=== PATIENT | female | born 1985 | race African-American/Black ===

== ENCOUNTER 2019-08-17 07:12 | Emergency (ER) | payer OTHER ==
--- NOTE | 2019-08-17 07:18 | PDOC ---
History of Present Illness - General Stated Complaint: ABDOMINAL PAIN Time Seen by Provider: 08/17/19 07:18 History Source: Patient Exam Limitations: No Limitations - History of Present Illness Initial Comments: 34 year old female with PMH epilepsy, uterine fibroids BIBA to ED for acute LLQ/ L Flank pain since 0400 today. Pt reported she awoke with sharp pain originating in her LLQ, radiating to her L flank, constant, no alleviating or aggravating factors. She admitted to 2-3 episodes of vomiting (yellow emesis). She denied diarrhea, dysuria, hematuria, fever. Pt reported she is currently on her menstrual period. PSH: x2 Past History - Past Medical History Allergies/Adverse Reactions: Allergies Allergy/AdvReac Type Severity Reaction Status Date / Time No Known Allergies Allergy Verified 06/04/14 16:02 Home Medications: Ambulatory Orders Clonazepam [Klonopin] 1 mg PO BID 08/17/19 Lacosamide [Vimpat] 200 mg PO DAILY 08/17/19 Tamsulosin HCl [Flomax] 0.4 mg PO DAILY #7 cap.er.24h 08/17/19 Psychiatric Problems: Yes (depression/anxiety) - Psycho Social/Smoking Cessation Hx Smoking History: Current every day smoker Number of Cigarettes Smoked Daily: 3 *Physical Exam - Physical Exam Comments: ROS General: denied fever, chills, generalized weakness. HEENT: denied sore throat, rhinorrhea, ear pain. Cardiovascular: denied chest pain, palpitations, syncope, diaphoresis. Respiratory: denied shortness of breath, cough, sputum production, hemoptysis. Gastrointestinal: admitted to abdominal pain, nausea, vomiting. denied diarrhea , constipation, blood in stool. Genitourinary: admitted to flank pain. denied dysuria, increased urinary frequency, hematuria, urinary incontinence. Back: denied back pain. Musculoskeletal: denied joint pain, muscle pain, joint swelling. Neurological: denied headache, dizziness, numbness, tingling, weakness. Integumentary: denied rash, laceration, abrasion. Hematologic/Lymphatic: denied bruising or bleeding. PE Constitutional: Well-nourished, Well-developed, appearing stated age. HEENT: head is normocephalic, atraumatic. EOMI. PERRLA. Neck: supple. Full ROM. Cardiovascular: regular heart rhythm. no murmurs. no pericardial friction rub. Respiratory: clear to auscultation bilaterally. no crackles, rhonchi or wheezing. no stridor. Gastrointestinal: soft, flat. tenderness to palpation of LLQ/LUQ. normal bowel sounds. no rebound, guarding, masses. Back: positive CVA tenderness on the Left. Negative CVA tenderness on the right. Extremities: peripheral pulses intact. no lower extremity edema. Neurological: CN 2-12 grossly intact. moves all four extremities. Psych: awake, alert, oriented x3. follows commands. answers questions appropriately. Procedures - Bedside Ultrasound Other: Renal Remarks: Bedside renal US was performed showing mild left sided hydronephrosis, no right sided hydronephrosis. ED Treatment Course - LABORATORY CBC & Chemistry Diagram: 08/17/19 07:30 08/17/19 08:24 Medical Decision Making - Medical Decision Making 34 year old female with above PMH presented to ED via ambulance for acute LLQ/L flank pain associated with vomiting. Initial Vital Signs Temp Pulse Resp BP Pulse Ox 97.8 F 86 20 112/72 100 08/17/19 07:23 08/17/19 07:23 08/17/19 07:23 08/17/19 07:23 08/17/19 07:23 Labs ordered: CBC, CMP, lipase, UA/UC, serum test Imaging ordered: Spiral Renal CT noncontrast once Medications ordered: normal saline 1000 cc bolus once, IV tylenol 1000 mg once, zofran 4 mg IV once 08/17/19 08:23 CMP Sodium 137 mmol/L (136-145) 08/17/19 07:30 Potassium 6.0 mmol/L (3.5-5.1) H 08/17/19 07:30 Chloride 106 mmol/L (98-107) 08/17/19 07:30 Carbon Dioxide 27 mmol/L (21-32) 08/17/19 07:30 Anion Gap 4 MMOL/L (8-16) L 08/17/19 07:30 BUN 11.5 mg/dL (7-18) 08/17/19 07:30 Creatinine 0.8 mg/dL (0.55-1.3) 08/17/19 07:30 Est GFR (CKD-EPI)AfAm 112.27 08/17/19 07:30 Est GFR (CKD-EPI)NonAf 96.87 08/17/19 07:30 Random Glucose 88 mg/dL (74-106) 08/17/19 07:30 Calcium 8.7 mg/dL (8.5-10.1) 08/17/19 07:30 Total Bilirubin 0.3 mg/dL (0.2-1) 08/17/19 07:30 AST 48 U/L (15-37) H 08/17/19 07:30 ALT 19 U/L (13-61) 08/17/19 07:30 Alkaline Phosphatase 76 U/L (45-117) 08/17/19 07:30 Total Protein 7.7 g/dl (6.4-8.2) 08/17/19 07:30 Albumin 3.4 g/dl (3.4-5.0) 08/17/19 07:30 Lipase 257 U/L (73-393) 08/17/19 07:30 Hyperkalemia, suspect lab error. Will redraw. EKG ordered. IVF running. No MAICOL Lipase wnl. 08/17/19 08:51 CBC WBC 5.5 K/mm3 (4.0-10.0) 08/17/19 07:30 RBC 4.15 M/mm3 (3.60-5.2) 08/17/19 07:30 Hgb 10.2 GM/dL (10.7-15.3) L 08/17/19 07:30 Hct 32.6 % (32.4-45.2) 08/17/19 07:30 MCV 78.5 fl (80-96) L 08/17/19 07:30 MCH 24.6 pg (25.7-33.7) L 08/17/19 07:30 MCHC 31.3 g/dl (32.0-36.0) L 08/17/19 07:30 RDW 16.5 % (11.6-15.6) H 08/17/19 07:30 Plt Count 352 K/MM3 (134-434) 08/17/19 07:30 MPV 6.9 fl (7.5-11.1) L 08/17/19 07:30 Absolute Neuts (auto) 3.7 K/mm3 (1.5-8.0) 08/17/19 07:30 Neutrophils % 67.8 % (42.8-82.8) 08/17/19 07:30 Lymphocytes % 24.3 % (8-40) 08/17/19 07:30 Monocytes % 6.5 % (3.8-10.2) 08/17/19 07:30 Eosinophils % 0.9 % (0-4.5) 08/17/19 07:30 Basophils % 0.5 % (0-2.0) 08/17/19 07:30 Nucleated RBC % 0 % (0-0) 08/17/19 07:30 No leukocytosis. 08/17/19 08:55 EKG performed at 0845: rate 76, regular rhythm, normal axis, normal intervals, flipped T V1-V3. -Flipped T waves not seen on EKG comparison 09/17/11. -Will repeat EKG -Troponin added one -No chest pain Serum testing negative. 08/17/19 09:06 EKG performed at 0854: rate 70, regular rhythm, normal axis, normal intervals, flipped T in V1-V3. 08/17/19 09:44 CMP Sodium 140 mmol/L (136-145) 08/17/19 08:24 Potassium 4.4 mmol/L (3.5-5.1) 08/17/19 08:24 Chloride 109 mmol/L (98-107) H 08/17/19 08:24 Carbon Dioxide 28 mmol/L (21-32) 08/17/19 08:24 Anion Gap 4 MMOL/L (8-16) L 08/17/19 08:24 BUN 10.5 mg/dL (7-18) 08/17/19 08:24 Creatinine 0.7 mg/dL (0.55-1.3) 08/17/19 08:24 Est GFR (CKD-EPI)AfAm 131.94 08/17/19 08:24 Est GFR (CKD-EPI)NonAf 113.84 08/17/19 08:24 Random Glucose 81 mg/dL (74-106) 08/17/19 08:24 Calcium 8.4 mg/dL (8.5-10.1) L 08/17/19 08:24 Total Bilirubin 0.2 mg/dL (0.2-1) 08/17/19 08:24 AST 13 U/L (15-37) L 08/17/19 08:24 ALT 14 U/L (13-61) 08/17/19 08:24 Alkaline Phosphatase 70 U/L (45-117) 08/17/19 08:24 Troponin I < 0.02 ng/ml (0.00-0.05) 08/17/19 08:24 Total Protein 6.6 g/dl (6.4-8.2) 08/17/19 08:24 Albumin 3.1 g/dl (3.4-5.0) L 08/17/19 08:24 Lipase 257 U/L (73-393) 08/17/19 07:30 Serum , Qual Negative 08/17/19 07:30 No hyperkalemia. No transaminitis. Troponin wnl. -Dr. Almaraz (Cardio contractor field hauling) paged CT report: Name: KARIS ABREU DEPARTMENT OF RADIOLOGY Phys: Marija Spencer RESIDENT : 1985 Age: 34 Sex: F [facility] Acct: [id number] Loc: [address] Exam Date: 08/17/19 Status: [place] [address] Unit Number: [id number] EXAM#: TYPE/EXAM: RESULT: [id number] CT/SPIRAL- RENAL-STONE CT HISTORY PROVIDED: Left flank pain TECHNIQUE: Sequential axial images were obtained from the is of the diaphragm through the symphysis pubis utilizing urinary tract calculi protocol. There is a 2 mm calcification at the left ureterovesical junction consistent with a partially obstructing calculus. There is mildly of hydronephrosis associated with these stones. There are additional 2 mm calculi within the left upper collecting system, as well as a 4 mm stone within the upper pole of the right kidney. A few additional punctate calculi are seen within the right kidney. There is no evidence of right-sided hydronephrosis or obstructive uropathy. No significant abnormalities of the liver, spleen, pancreas, or adrenal glands are identified. There is no evidence of intra- abdominal, retroperitoneal or pelvic mass lesions, fluid collections or lymphadenopathy. There is no evidence of pneumoperitoneum, bowel obstruction or intra-abdominal abscess. There is no CT evidence of acute appendicitis or diverticulitis There is no evidence of acute bony pathology. IMPRESSION: 1. 2 mm left UVJ calculus with mild hydronephrosis. 2. Additional bilateral nephrolithiasis with no evidence of right-sided hydronephrosis or additional evidence of acute pathology within the abdomen or pelvis. Please see above discussion. Reported By: Patric Alegre MD 08/17/19 0934 Medications ordered: Flomax 0.4 mg PO once, Toradol 30 mg IV once 08/17/19 10:40 Urine Test Results Urine Color Yellow 08/17/19 07:30 Urine Appearance Clear 08/17/19 07:30 Urine pH 8.5 (5.0-8.0) H D 08/17/19 07:30 Ur Specific [place] 1.007 (1.010-1.035) L 08/17/19 07:30 Urine Protein Negative (NEGATIVE) 08/17/19 07:30 Urine Glucose (UA) Negative (NEGATIVE) 08/17/19 07:30 Urine Ketones Negative (NEGATIVE) 08/17/19 07:30 Urine Blood 2+ (NEGATIVE) H 08/17/19 07:30 Urine Nitrite Negative (NEGATIVE) 08/17/19 07:30 Urine Bilirubin Negative (NEGATIVE) 08/17/19 07:30 Ur Leukocyte Esterase Negative (NEGATIVE) 08/17/19 07:30 Negative for UTI. Positive for hematuria - menstruation vs nephrolithiasis. Dr. Almaraz, cardiology contractor field hauling currently bedside. 08/17/19 11:01 Dr. Almaraz advised ECHO. Above ordered. I called the [facility] department to let them know, they stated that someone will come or they will call to transport the patient to their department. 08/17/19 12:22 Pt reported ECHO completed upstairs. Dr. Almaraz paged. 08/17/19 13:[address] Almaraz, who reported he will be reading ECHO and placing report later today. Pt reported she does not want to wait for ECHO report. Risks discussed with patient - cardiac arrest, , congestive heart failure, respiratory arrest. She expressed understanding, was alert and oriented x3, able to make her own medical decisions. Pt encouraged to return and call for her results if she does not return. Pt left prior to receiving discharge paperwork. Flomax was sent to pt's pharmacy. Discharge - Discharge Information Problems reviewed: Yes Clinical Impression/Diagnosis: Nephrolithiasis Condition: Improved Disposition: AGAINST MEDICAL ADVICE - Admission No - Additional Discharge Information Prescriptions: Tamsulosin HCl [Flomax] 0.4 mg PO DAILY #7 cap.er.24h - Follow up/Referral Referrals: Chriss Londono MD [Primary Care Provider] - - Patient Discharge Instructions Patient Printed Discharge Instructions: DI for Kidney Stones, Tamsulosin Additional Instructions: Follow up with your primary care doctor within 3 days. Your care is not complete until you follow up. Drink lots of water to stay hydrated and flush the stone out. I have prescribed a medication (Flomax) to help flush out the stone. Take daily. Take ibuprofen over the counter for pain, take as advised on label. Return to the Emergency Department for increasing pain despite ibuprofen use, fever, burning with urination, blood in urine, chest pain, shortness of breath or any other new, worsening or concerning symptoms. - Post Discharge Activity Work/Back to School Note: Back to Work
[2019-08-17] MEDS ORDERED: ACETAMINOPHEN 325 MG TABLET (FP) PO ONE (07:24)
[2019-08-17] MEDS ORDERED: SODIUM CHLORIDE 1,000 ML IV STA (07:24)
[2019-08-17] MEDS ORDERED: ONDANSETRON 4 MG/2 ML VIAL IVPUSH ONE (07:29)
[2019-08-17] MEDS ORDERED: ACETAMINOPHEN 1000 MG/100 ML VIAL (NON FORMULARY) IVPB ONE (07:40)
[2019-08-17] MEDS ORDERED: ACETAMINOPHEN INJECTION 100 ML IVPB ONE (07:41)
[2019-08-17] MEDS ORDERED: ONDANSETRON 4 MG/2 ML VIAL ONE (07:41)
[2019-08-17 07:48] LABS: BASO % 0.5 % (0-2.0); EOS % 0.9 % (0-4.5); HEMATOCRIT 32.6 % (32.4-45.2); HEMOGLOBIN 10.2 GM/dL (10.7-15.3); LYMPH % 24.3 % (8-40); MCH 24.6 pg (25.7-33.7); MCHC 31.3 g/dl (32.0-36.0); MEAN CELL VOLUME 78.5 fl (80-96); MEAN PLT VOLUME 6.9 fl (7.5-11.1); MONO % 6.5 % (3.8-10.2); NEUT % 67.8 % (42.8-82.8); PLATELET COUNT 352 K/MM3 (134-434); RBC 4.15 M/mm3 (3.60-5.2); RDW 16.5 % (11.6-15.6); WHITE BLOOD COUNT 5.5 K/mm3 (4.0-10.0)
[2019-08-17 07:54] VITALS: BMI 33.2
[2019-08-17 08:14] LABS: ALBUMIN 3.4 g/dl (3.4-5.0); BILIRUBIN,TOTAL 0.3 mg/dL (0.2-1); BLOOD UREA NITROGEN 11.5 mg/dL (7-18); CALCIUM 8.7 mg/dL (8.5-10.1); CREATININE 0.8 mg/dL (0.55-1.3); TOT PROT 7.7 g/dl (6.4-8.2)
--- NOTE | 2019-08-17 08:17 | PDOC ---
Attending Attestation - Resident Resident Name: Marija Spencer - ED Attending Attestation I have performed the following: I have examined & evaluated the patient, The case was reviewed & discussed with the resident, I agree w/resident's findings & plan, Exceptions are as noted - HPI HPI: 08/17/19 08:13 34yo female with acute onset of L flank pain. Hx of uterine fibroids s/p myomectomy and hx of c sections. Also hx of epilepsy. States pain woke her up at 4am. States she felt a sharp pain to the L flank. No dysuria, no hesitancy, no freq. States she is menstruating, so unsure if hematuria. States she drank water and tried to eat and apple which caused her to vomit x 3 - nonbilious. No f/c. States she had a bm - normal which relieved the pain for a brief time, but is has come back. States pain is constant, but that it does have episodes of becoming sharp. Currently nauseated. Pt arrives via ambulance from home. Denies blood in stool. No f/c. No cp sob. No other complaints. - Physicial Exam PE: 08/17/19 08:15 Gen: aaox3, nad heart: +s1s2 reg lungs cta b/l abd: soft, LLQ ttp, L cva ttp, L pelvis ttp ext: no c/c/e skin: no rash neuro: calm, cooperative, awake, alert, oriented, moves all extremities - Medical Decision Making 08/17/19 08:16 a/p: 34yo female with L flank pain -suspect renal colic, no prior hx -also poss for L ovarian pathology -will send labs, ua, ucg -will send for ct abd/pelvis -will medicate for nausea, ivf hydration -will monitor and reassess 08/17/19 09:48 2mm stone L uvj ua pending 08/17/19 09:48 abnl ekg - trop neg will discuss with cardiology 08/17/19 10:39 dr. crowell at the bedside 08/17/19 11:03 dr. crowell requests echo 08/17/19 13:20 pending call back from Dr. Crowell - re echo 08/17/19 13:21 pt states she no longer wants to wait for the echo report states she wants to leave resident discussed abnl ekg and need to wait for echo results pt states she wants to sign out AMA 08/17/19 13:22 Note: The patient insists on leaving the emergency dept and is signing out against medical advice. The patient understands the risks and complications that may result from the refusal of medical care and admission which includes and permanent disability. The patient has the mental capacity of understanding the risks of refusing care and is capable of making an informed decision. The patient was instructed to return to the emergency department should she change her mind regarding medical care or should her condition worsen. The patient signed the Against Medical Advice form. Heart Score/ECG Review - ECG Intrepretation Comment:: 08/17/19 09:04 sinus at 76, nl axis, nl interval, t wave inversions v2-3, no acute st changes, t wave inversions are new from 201008/17/19 09:06 repeat ekg: sinus at 70, nl axis, nl ineval, t wave inversions v2-3, no acute st changes
[2019-08-17 09:11] LABS: ALBUMIN 3.1 g/dl (3.4-5.0); ALK PHOS 70 U/L (45-117); ANION GAP 4 MMOL/L (8-16); BILIRUBIN,TOTAL 0.2 mg/dL (0.2-1); BLOOD UREA NITROGEN 10.5 mg/dL (7-18); CALCIUM 8.4 mg/dL (8.5-10.1); CHLORIDE 109 mmol/L (98-107); CO2 28 mmol/L (21-32); CREATININE 0.7 mg/dL (0.55-1.3); GLUCOSE,RANDOM 81 mg/dL (74-106); POTASSIUM 4.4 mmol/L (3.5-5.1); SGOT/AST 13 U/L (15-37); SGPT/ALT 14 U/L (13-61); SODIUM 140 mmol/L (136-145); TOT PROT 6.6 g/dl (6.4-8.2)
[2019-08-17] MEDS ORDERED: KETOROLAC TROMETHAMINE 30 MG/1 ML VIAL IVPUSH ONE (09:42)
[2019-08-17] MEDS ORDERED: TAMSULOSIN HCL 0.4 MG CAP PO ONE (09:42)
[2019-08-17] MEDS ORDERED: TAMSULOSIN HCL 0.4 MG CAP ONE (09:47)
[2019-08-17] MEDS ORDERED: KETOROLAC TROMETHAMINE 30 MG/1 ML VIAL ONE (09:47)
[2019-08-17 10:16] LABS: EPI CELLS 0.9 /HPF (0-5/HPF); HYALINE CASTS 0 /lpf (0-8); PH,URINE 8.5 (5.0-8.0); URINE APPEARANCE CLEAR; URINE BACTERIA 9.8 /hpf (NEGATIVE); URINE BILIRUBIN NEGATIVE (NEGATIVE); URINE COLOR YELLOW; URINE GLUCOSE (UA) NEGATIVE (NEGATIVE); URINE KETONE NEGATIVE (NEGATIVE); URINE LEUK ESTERASE NEGATIVE (NEGATIVE); URINE NITRITE NEGATIVE (NEGATIVE); URINE PROTEIN NEGATIVE (NEGATIVE); URINE RBC 40 /hpf (0-4); URINE UROBILINOGEN 0.2 mg/dL (0.2-1.0); URINE WBC 0 /hpf (0-5)
--- NOTE | 2019-08-17 12:43 | CON.CARD ---
Consult Consult Specialty:: Cardiology Referred by:: ER Reason for Consultation:: Cardiac evaluation - History of Present Illness Chief Complaint: Abnormal ECG History of Present Illness: Patient is a 34 year old female with underlying history of seizure disorder and uterine fibroids who presented to ED with left flank pain due to kidney stones. She states that this is her first episode. She denies chest pain, shortness of breath or palpitations. She denies paroxysmal nocturnal dyspnea or orthopnea. She denies fever or chills. She denies nausea, vomiting, diarrhea or abdominal pain. She denies headache or lightheadedness. Cardiology consultation as called for further evaluation of abnormal ECG revealing T wave inversion in anterior leads - History Source History Provided By: Patient, Medical Record Limitations to Obtaining History: No Limitations - Past Medical History DIRECTOR OF TRANSPORTATION: Yes: Seizure Reproductive: Yes: Fibroids - Past Surgical History Past Surgical History: Yes: None - Alcohol/Substance Use Hx Alcohol Use: No - Smoking History Smoking history: Current every day smoker Aproximately how many cigarettes per day: 3 Home Medications - Allergies Allergies/Adverse Reactions: Allergies Allergy/AdvReac Type Severity Reaction Status Date / Time No Known Allergies Allergy Verified 06/04/14 16:02 - Home Medications Home Medications: Ambulatory Orders Clonazepam [Klonopin] 1 mg PO BID 08/17/19 Lacosamide [Vimpat] 200 mg PO DAILY 08/17/19 Tamsulosin HCl [Flomax] 0.4 mg PO DAILY #7 cap.er.24h 08/17/19 Family Medical History Other Family History: CAD Review of Systems - Review of Systems Constitutional: denies: Chills, Fever Cardiovascular: denies: Chest Pain, Palpitations, Shortness of Breath Respiratory: denies: Cough, Hemoptysis, Orthopnea, PND, SOB, SOB on Exertion Gastrointestinal: reports: Vomiting. denies: Abdominal Pain, Constipation, Diarrhea, Nausea, Rectal Bleeding, Vomiting Blood Genitourinary: reports: Flank Pain Musculoskeletal: denies: Joint Pain Neurological: denies: Dizziness, Headache, Seizure, Syncope Vital Signs: Vital Signs Temperature 97.8 F 08/17/19 07:23 Pulse Rate 86 08/17/19 07:23 Respiratory Rate 20 08/17/19 07:23 Blood Pressure 112/72 08/17/19 07:23 O2 Sat by Pulse Oximetry (%) 100 08/17/19 07:23 Constitutional: Yes: No Distress Neck: Yes: Supple Respiratory: Yes: CTA Bilaterally Gastrointestinal: Yes: Normal Bowel Sounds, Soft. No: Tenderness Cardiovascular: Yes: Regular Rate and Rhythm JVD: No Carotid Bruit: No PMI: Non-Displaced Heart Sounds: Yes: S1, S2. No: Gallop Murmur: No: Systolic Murmur Edema: No - Other Data Labs, Other Data: CBC, BMP 08/17/19 07:30 08/17/19 08:24 Troponin, BNP 08/17/19 08:24 Troponin I < 0.02 Laboratory Results - last 24 hr 08/17/19 08/17/19 08/17/19 07:30 07:30 07:30 WBC 5.5 RBC 4.15 Hgb 10.2 L Hct 32.6 MCV 78.5 L MCH 24.6 L MCHC 31.3 L RDW 16.5 H Plt Count 352 MPV 6.9 L Absolute Neuts (auto) 3.7 Neutrophils % 67.8 Lymphocytes % 24.3 Monocytes % 6.5 Eosinophils % 0.9 Basophils % 0.5 Nucleated RBC % 0 Sodium 137 Potassium 6.0 H Chloride 106 Carbon Dioxide 27 Anion Gap 4 L BUN 11.5 Creatinine 0.8 Est GFR (CKD-EPI)AfAm 112.27 Est GFR (CKD-EPI)NonAf 96.87 Random Glucose 88 Calcium 8.7 Total Bilirubin 0.3 AST 48 H ALT 19 Alkaline Phosphatase 76 Troponin I Total Protein 7.7 Albumin 3.4 Lipase 257 Serum , Qual Urine Color Urine Appearance Urine pH Ur Specific [place] Urine Protein Urine Glucose (UA) Urine Ketones Urine Blood Urine Nitrite Urine Bilirubin Urine Urobilinogen Ur Leukocyte Esterase Urine WBC (Auto) Urine RBC (Auto) Urine Casts (Auto) U Epithel Cells (Auto) Urine Bacteria (Auto) Urine HCG, Qual Negative 08/17/19 08/17/19 08/17/19 07:30 07:30 08:24 WBC RBC Hgb Hct MCV MCH MCHC RDW Plt Count MPV Absolute Neuts (auto) Neutrophils % Lymphocytes % Monocytes % Eosinophils % Basophils % Nucleated RBC % Sodium 140 Potassium 4.4 Chloride 109 H Carbon Dioxide 28 Anion Gap 4 L BUN 10.5 Creatinine 0.7 Est GFR (CKD-EPI)AfAm 131.94 Est GFR (CKD-EPI)NonAf 113.84 Random Glucose 81 Calcium 8.4 L Total Bilirubin 0.2 AST 13 L ALT 14 Alkaline Phosphatase 70 Troponin I < 0.02 Total Protein 6.6 Albumin 3.1 L Lipase Serum , Qual Negative Urine Color Yellow Urine Appearance Clear Urine pH 8.5 H D Ur Specific [place] 1.007 L Urine Protein Negative Urine Glucose (UA) Negative Urine Ketones Negative Urine Blood 2+ H Urine Nitrite Negative Urine Bilirubin Negative Urine Urobilinogen 0.2 Ur Leukocyte Esterase Negative Urine WBC (Auto) 0 Urine RBC (Auto) 40 Urine Casts (Auto) 0 U Epithel Cells (Auto) 0.9 Urine Bacteria (Auto) 9.8 Urine HCG, Qual Sinus rhythm with T wave abnormality in anterior leads Echo: Report Reviewed Imaging - Results Cat Scan: Report Reviewed (Abdominal CT 2 mm renal calculi in left UVJ) EKG: Report Reviewed Problem List - Problems (1) Abnormal ECG Code(s): R94.31 - ABNORMAL ELECTROCARDIOGRAM [ECG] [EKG] (2) Epilepsy Code(s): G40.909 - EPILEPSY, UNSP, NOT INTRACTABLE, WITHOUT STATUS EPILEPTICUS (3) Nephrolithiasis Code(s): N20.0 - CALCULUS OF KIDNEY Assessment/Plan 1. Nephrolithiasis with flank pain 2. Abnormal ECG with T abnormalities 3. History of epilepsy PLAN: 1. Echocardiography to assess LV/RV and valvular function 2. Further cardiac work up including possible ETT or stress echocardiography can be done as outpatient if clinically indicated 3. Hydration 4. Analgesics 5. Further evaluation including 24 hour urine collection to assess composition of stone may be considered as outpatient Further plans are to follow Guillermo Almaraz MD
--- NOTE | 2019-08-17 13:13 | ECHO ---
Name: KARIS ABREU Exam:Adult Echocardiogram Study Date: 08/17/2019 11:23 AM Age: 34 yrs Reason For Study: EKG Changes Height: 61 in Weight: 176 lb BSA: 1.8 m2 MMode/2D Measurements & Calculations IVSd: 0.89 cm Ao root diam: 2.8 cm LVIDd: 4.4 cm LA dimension: 2.5 cm LVIDs: 2.6 cm LVPWd: 0.83 cm EDV(Teich): 88.3 ml LVOT diam: 2.0 cm ESV(Teich): 25.3 ml LAV (MOD-bp): 35.0 ml Doppler Measurements & Calculations MV E max josé luis: 113.0 cm/sec Ao V2 max: 171.0 cm/sec MV A max josé luis: 56.9 cm/sec Ao max P.7 mmHg MV E/A: 2.0 MV dec time: 0.20 sec CHAD(V,D): 2.3 cm2 LV V1 max P.2 mmHg MR max josé luis: 230.8 cm/sec LV V1 max: 124.2 cm/sec MR max P.3 mmHg TR max josé luis: 200.9 cm/sec PA V2 max: 108.6 cm/sec TR max P.4 mmHg PA max P.7 mmHg Med Peak E' José Luis: 10.7 cm/sec PI Vmax: 119.4 cm/sec Med E/e': 10.6 Lat Peak E' José Luis: 15.3 cm/sec Lat E/e': 7.4 Procedure A complete two-dimensional transthoracic echocardiogram was performed (2D, M-mode, Doppler and color flow Doppler). Left Ventricle The left ventricle is normal in size. Left ventricular systolic function is normal. Ejection Fraction = 65- 70%. No regional wall motion abnormalities noted. Right Ventricle The right ventricle is normal size. The right ventricular systolic function is normal. Atria The left atrial size is normal. Right atrial size is normal. Mitral Valve The mitral valve is normal in structure and function. There is mild mitral regurgitation. Tricuspid Valve The tricuspid valve is normal in structure and function. There is mild tricuspid regurgitation. Pulmo nary artery systolic pressure is at least 24 mmHg as RA pressure is assumed 3 mmHg (normal IVC, >50% colla pse). Aortic Valve The aortic valve is normal in structure and function. No aortic regurgitation is present. Pulmonic Valve The pulmonic valve is not well visualized. Trace pulmonic valvular regurgitation. Great Vessels The aortic root is normal size. Pericardium/Pleura There is no pericardial effusion. Interpretation Summary The left ventricle is normal in size. Left ventricular systolic function is normal. No regional wall motion abnormalities noted. Ejection Fraction = 65-70%. The right ventricular systolic function is normal. The left atrial size is normal. Right atrial size is normal. There is mild mitral regurgitation. There is mild tricuspid regurgitation. Pulmonary artery systolic pressure is at least 24 mmHg as RA pressure is assumed 3 mmHg (normal IVC, >50% collapse) Trace pulmonic valvular regurgitation. There is no pericardial effusion. Previous study is not available for comparison Guillermo Almaraz MD 08/17/2019 01:12 PM
[2019-08-17 13:35] VITALS: BP 104/67; PULSE 74; TEMP 97.7
--- NOTE | 2019-08-18 11:06 | EKG ---
Test Reason : Blood Pressure : / mmHG Vent. Rate : 070 BPM Atrial Rate : 070 BPM P-R Int : 146 ms QRS Dur : 074 ms QT Int : 390 ms P-R-T Axes : 061 024 029 degrees QTc Int : 421 ms NORMAL SINUS RHYTHM T WAVE ABNORMALITY, CONSIDER ANTERIOR ISCHEMIA ABNORMAL ECG Confirmed by Dread Bradley MD ([id number]) on 08/18/2019 11:05:56 AM Referred By: Confirmed By:Dread Bradley MD
== END 2019-08-17 13:55 | disposition left against medical advice (07) ==
LOC: JER 07:12
PROC: BT43ZZZ Ultrasonography of Bilateral Kidneys (ICD-10-PCS; principal; 2019-08-17)
DX: N20.0 Calculus of kidney (principal); R94.31 Abnormal electrocardiogram [ECG] [EKG]; G40.909 Epilepsy, unspecified, not intractable, without status epilepticus; D25.9 Leiomyoma of uterus, unspecified; F17.210 Nicotine dependence, cigarettes, uncomplicated
CPT/HCPCS: 36415; 74176-TC; 76770; 80053; 81003; 83690; 84484; 84703; 85025; 87077; 87086; 93005; 93010; 93306-TC; 96361; 96374; 96375; 99284-25; J0131; J7030

== ENCOUNTER 2020-08-24 16:13 | Emergency (ER) | payer OTHER ==
[2020-08-24 16:22] VITALS: BP 112/73; PULSE 105; TEMP 98.1; BMI 32.1
--- NOTE | 2020-08-24 16:23 | PDOC ---
Rapid Medical Evaluation Time Seen by Provider: 08/24/20 16:21 Medical Evaluation: Allergies Allergy/AdvReac Type Severity Reaction Status Date / Time No Known Allergies Allergy Verified 06/04/14 16:02 08/24/20 16:22 CC: hurt 1 st finger of rt hand Exam: LROM of rt 1st digit Plan: xray Discharge Disposition - Diagnosis Finger injury - Referrals - Patient Instructions - Post Discharge Activity
--- OUTSIDE RECORDS SUMMARY | 2020-08-24 16:30 | XMS ---
:1985 [facility] Care Team Providers Name Role Phone Luis Tucker MD Unavailable Unavailable [facility] Unavailable Unavailable AJITH GONCALVES Unavailable Unavailable Re-disclosure Warning The records that you are about to access may contain information from federally- assisted alcohol or drug abuse programs. If such information is present, then the following federally mandated warning applies: This information has been disclosed to you from records protected by federal confidentiality rules (42 CFR part 2). The federal rules prohibit you from making any further disclosure of this information unless further disclosure is expressly permitted by the written consent of the person to whom it pertains or as otherwise permitted by 42 CFR part 2. A general authorization for the release of medical or other information is NOT sufficient for this purpose. The Federal rules restrict any use of the information to criminally investigate or prosecute any alcohol or drug abuse patient.The records that you are about to access may contain highly sensitive health information, the redisclosure of which is protected by Article 27-F of the [facility] Public Health law. If you continue you may haveaccess to information: Regarding HIV / AIDS; Provided by facilities licensed or operated by the [facility] Office of Mental Health; or Provided by the [facility] Office for People With Developmental Disabilities. If such information is present, then the following [facility] mandated warning applies: This information has been disclosed to you from confidential records which are protected by state law. State law prohibits you from making any further disclosure of this information without the specific written consent of the person to whom it pertains, or as otherwise permitted by law. Any unauthorized further disclosure in violation of state law may result in a fine or detention sentence or both. A general authorization for the release of medical or other information is NOT sufficient authorization for further disclosure. Encounters Encounter Providers Location Date Indications Data Source(s ) Outpatient Attender: SV9 07/25/2020 [facility] ([facility] 03:48:37 PM Care [facility]) EDT Patient admitted. Outpatient Attender: Luis 05/25/2020 09:30:00 LEFT BREAS T BX Taras Tucker MD AM EDT Hospital LEFT BREAST BX Outpatient Attender: [address] 05/21/2020 11:34:23 AM [facility] ([facility]) Patient admitted. Outpatient Attender: Luis 05/06/[address] jeffrey Tucker MD 10:45:00 AM EDT BREAST,FAMILY HX OF Hospital BREAST CANCER LUMP RIGHT BREAST,FAMILY HX OF BREAST CA NCER [facility] 12:[facility] EDT [facility] [place] [facility] [employer]) Outpatient Attender: 02/24/2020 [facility] ([facility] [address] 12:44:56 PM EDT [facility]) Patient admitted. Unlisted evaluation 02/01/2020 06:29:00 NETSMART (Mental and management PM EDT [facility]) Outpatient Attender: SV9 12/08/2019 11:59:06 [facility] ([facility] ) Patient admitted. Outpatient Attender: [address] 11/12/2019 08:16:58 PM [facility] ([facility]) Patient admitted. [facility] 08/10/2019 [facility]CW[facility] 12:00:00 AM EDT Par [facility] - [place] [facility] [employer]) Outpatient Admitter: GOLDIE 09/27/2010 [facility] 10:01:00 AM [facility] Medication Brand Start Product Dose Route Administrative Pharmacy [facility] Indications Reaction Description Data Name Date Form Instructions Instructions Source(s) Clonazepam clonaz ORAL complet clonaze [facility] 1 MG Oral 2019 Table ed 1 MG ORAL Vi ncents Tablet 1 MG 12:00: t Tablet Hospital ORAL 00 AM Tablet EDT Alprazolam Xanax ORAL complet Xanax - 1 MG [facility] 1 MG Oral - 1 MG 2019 Table ed [facility] [Xanax] Tablet 00 AM EDT Clonazepam clonaz 30/ 0.5 ORAL complet clonaze [facility] - [facility] 1 MG Oral ePA2019 Table ed 1 MG ORAL Vi n[facility] Tablet 1 MG 12:00: t Tablet Hospital ORAL 00 AM Tablet EDT Escitalopra Lexapr ORAL complet Lexapr o - 10 [facility] 10 MG 2019 Table ed MG ORAL [facility] Oral Tablet MG 12:00: t Tablet Hosp ital [Lexapro] ORAL 00 AM Tablet EDT quetiapine SEROqu 07/20/ 0.5 ORAL complet SEROque l - [facility] 50 MG Oral 2019 Table ed 50 MG ORAL Vi ncents Tablet 50 MG 12:00: t Tablet Hospital [Seroquel] ORAL 00 AM Tablet EDT Alprazolam Xanax 06/14/ 0.5 ORAL complet Xanax - 1 MG [facility] 1 MG Oral - 1 MG 2019 Table ed ORAL [facility] 12:[facility]: t Hospital [Xanax] Tablet 00 AM EDT Clonazepam clonaz 05/04/ 0.5 ORAL complet clonaze [facility] - [facility] 1 MG Oral 2019 Table ed 1 MG ORAL Vi ncents Tablet 1 MG 12:00: t Tablet Hospital ORAL 00 AM Tablet EDT quetiapine SEROqu 16/ 0.5 ORAL complet SEROque l - [facility] 50 MG Oral el 2019 Table ed 50 MG ORAL Vi ncents Tablet 50 MG 12:00: t Tablet Hospital [Seroquel] ORAL 00 AM Tablet EDT Escitalopra Lexapr ORAL complet Lexapr o - 10 [facility] 10 MG 2019 Table ed MG ORAL [facility] Oral Tablet [facility] 12:00: t [facility]t Hosp ital [Lexapro] ORAL 00 AM Tablet EDT Alprazolam Xanax 05/27/ 0.5 ORAL complet Xanax - 1 MG [facility] 1 MG Oral - 1 MG 2019 Table ed ORAL [facility] 12:[facility]: t Hospital [Xanax] Tablet 00 AM EDT Clonazepam clonaz 27/ 0.5 ORAL complet clonaze [facility] - [facility] 1 MG Oral ePAM - 2019 Table ed 1 MG ORAL Vi ncents Tablet 1 MG 12:00: t Tablet Hospital ORAL 00 AM Tablet EDT Metronidazo Metron 03/12/ active 1 table t eCW2 le 500 MG idazol 2019 (Planned Oral Tablet e 500 12:00: Paren thood MG 00 AM - [facility] [employer]) quetiapine SEROqu /25/ 0.5 ORAL complet [facility]que [facility] - [facility] 50 MG Oral el 2019 Table ed 50 MG ORAL Vi ncents Tablet 50 MG 12:00: t Tablet Hospital [Seroquel] ORAL 00 AM Tablet EDT Escitalopra Lexapr 01/12/ 1 ORAL complet Lexapr o - 10 [facility] 10 MG o - 10 2019 Table ed MG ORAL [facility] Oral Tablet MG 12:00: t Tablet Hosp ital [Lexapro] ORAL 00 AM Tablet EDT Alprazolam Xanax /25/ 0.5 ORAL complet Xanax - 1 MG [facility] 1 MG Oral - 1 MG 2019 Table ed ORAL [facility]t [facility] 12:[facility]: t Hospital [Xanax] Tablet 00 AM EDT Clonazepam clonaz /25/ 0.5 ORAL complet clonaze [facility] - [facility] 1 MG Oral ePA - 2019 Table ed 1 MG ORAL Vi ncents Tablet 1 MG 12:00: t Tablet Hospital ORAL 00 AM Tablet EDT Clonazepam clonaz 24/ 0.5 ORAL complet clonaze [facility] - [facility] 1 MG Oral ePA - 2019 Table ed 1 MG ORAL Vi ncents Tablet 1 MG 12:00: t Tablet Hospital ORAL 00 AM Tablet EST Alprazolam Xanax 14/ 0.5 ORAL complet Xanax - 1 MG [facility] 1 MG Oral - 1 MG 2019 Table ed ORAL [facility]t [facility] 12:[facility]: t Hospital [Xanax] Tablet 00 AM EST Escitalopra Lexapr ORAL complet Lexapr o - 10 [facility] 10 MG o - 10 2018 Table ed MG ORAL [facility] Oral Tablet MG 12:00: t Tablet Hosp ital [Lexapro] ORAL 00 AM Tablet EST Clonazepam clonaz 1 ORAL complet clonaze [facility] - [facility] 1 MG Oral 2018 Table ed 1 MG ORAL Vi [facility]cents Tablet 1 MG 12:00: t Tablet Hospital ORAL 00 AM Tablet EST quetiapine SEROqu 10/05/ 0.5 ORAL complet [facility] - [facility] 50 MG Oral 2018 Table ed 50 MG ORAL Vi ncents Tablet 50 MG 12:00: t Tablet Hospital [Seroquel] ORAL 00 AM Tablet EST Clonazepam clonaz 18 1 ORAL complet clonaze [facility] - [facility] 1 MG Oral 2018 Table ed 1 MG ORAL Vi [facility]cents Tablet 1 MG 12:00: t Tablet Hospital ORAL 00 AM Tablet EST Alprazolam Xanax 09/07/ 0.5 ORAL complet Xanax - 1 MG [facility] 1 MG Oral - 1 MG 2018 Table ed ORAL [facility]t [facility] 12:[facility]: t Hospital [Xanax] Tablet 00 AM EST Escitalopra Lexapr 1 ORAL complet Lexapr o - 10 [facility] 10 MG o - 10 2018 Table ed MG ORAL [facility] Oral Tablet MG 12:00: t Tablet Hosp ital [Lexapro] ORAL 00 AM Tablet EDT Clonazepam clonaz 1 ORAL complet clonaze [facility] - [facility] 1 MG Oral 2018 Table ed 1 MG ORAL Vi [facility]cents Tablet 1 MG 12:00: t Tablet Hospital ORAL 00 AM Tablet EDT Alprazolam Xanax 13/ 0.5 ORAL complet Xanax - 1 MG [facility] 1 MG Oral - 1 MG 2018 Table ed ORAL [facility]t [facility]t ORAL 12:[facility]: t Hospital [Xanax] Tablet 00 AM EDT quetiapine SEROqu 07/03/ 0.5 ORAL complet [facility] - [facility] 50 MG Oral 2018 Table ed 50 MG ORAL Vi ncents Tablet 50 MG 12:00: t Tablet Hospital [Seroquel] ORAL 00 AM Tablet EDT Insurance Providers Payer name Policy type Policy ID Covered Covered democrat's Policy P jose / Coverage democrat ID relationship to [employer] ormation type [place] AFFIN[employer] [id number] PT [id number] HEALTH PLAN AFFINITY [id number] PT [id number] HEALTH PLAN SELF PAY [id number] Self [id number] MEDICAID OP [id number] Self [id number] [facility] [id number] Self [id number] 200 AFFINITY/DUSTIN CON AFFINITY [id number] SP [id number] 200 AFFINITY [id number] SP [id number] [employer] MKD [id number] S [id number] A Managed Care [employer] MKD [id number] S [id number] Managed Care Problems, Conditions, and Diagnoses Code Display Name Description Problem Type Effective Dates Data Source(s) N60.32 Fibrosclerosis of N60.32 Diagnosis 05/25/2020 [place] [facility] left breast 09:30:00 AM EDT Hospital Z80.3 Family history of Z80.3 Diagnosis 05/06/2020 [place] malignant neoplasm of 10:28:00 AM ED T Hospital breast N64.4 Mastodynia N64.4 Diagnosis 05/06/2020 [place] 10:28:00 AM EDT Hospital N63.21 Unspecified lump in N63.21 Diagnosis 05/06/2020 [place] the left breast, 10:28:00 AM EDT Hos pital upper outer quadrant N63.25 N63.25 N63.25 Diagnosis 05/06/2020 [place] 10:28:00 AM EDT Hospital Surgeries/Procedures Procedure Description Date Indications Data Source(s) Telehealth Visit Code 03/12/2020 eCW2 ( [facility] 12:[facility] AM [facility] [employer] [facility]) After 6 PM, Weekends & 03/12/2020 eCW2 ([facility]anned Holidays 12:00:00 AM EDT [facility] [place] [facility] [facility]) Patient Treatment Plan of Care Planned Activity Planned Date Details Description Data Source (s) Metronidazole 500 MG Oral 03/12/2020 12:00:00 eCW2 ([facility]t AM EDT [facility] [facility])
--- NOTE | 2020-08-24 17:27 | PDOC ---
History of Present Illness - General Chief Complaint: Injury Stated Complaint: R HAND INJURY Time Seen by Provider: 08/24/20 16:21 History Source: Patient Exam Limitations: No Limitations - History of Present Illness Initial Comments: 08/24/20 17:28 35-year-old female presented ED complaining of right thumb pain. Patient states she was playing with her son when he hyper abducted her thumb. Patient felt a pop and immediate pain. Since the incident patient states that she has not been able to flex or extend her thumb secondary to pain. Pt otherwise denies: Numbness tingling or loss sensation in the affected digit fevers, chills, syncope, lightheadedness, dizziness, headaches, neck pain, chest pain, shortness of breath, palpitations, back pain, abdominal pain, nausea, vomiting, diarrhea, constipation. 08/24/20 17:28 Past History - Medical History Allergies/Adverse Reactions: Allergies Allergy/AdvReac Type Severity Reaction Status Date / Time No Known Allergies Allergy Verified 06/04/14 16:02 Home Medications: Ambulatory Orders Clonazepam [Klonopin] 1 mg PO BID 08/17/19 Lacosamide [Vimpat] 200 mg PO DAILY 08/17/19 Tamsulosin HCl [Flomax] 0.4 mg PO DAILY #7 cap.er.24h 08/17/19 CVA: No COPD: No CHF: No DVT: No Psychiatric Problems: Yes (depression/anxiety) Seizures: Yes - Reproductive History Is Patient Now?: No - Immunization History Immunization Up to Date: No - Psycho-Social/Smoking History Smoking History: Never smoked Have you smoked in the past 12 months: No Number of Cigarettes Smoked Daily: 3 Information on smoking cessation initiated: No - Substance Abuse Hx (Audit-C & DAST Scrn) How often the patient has a drink containing alcohol: Never Score: In Men: 4 or > Positive; In Women: 3 or > Positive: 0 Screen Result (Pos requires Nsg. Audit-10AR): Negative In the last yr the pt used illegal drug/Rx for NonMed reason: No Score: Yes response is considered Positive: 0 Screen Result (Positive result requires Nsg. DAST-10): Negative *Physical Exam - Vital Signs Last Vital Signs Temp Pulse Resp BP Pulse Ox 98.1 F 105 H 16 112/73 100 08/24/20 16:19 08/24/20 16:19 08/24/20 16:19 08/24/20 16:19 08/24/20 16:19 - Physical Exam 08/24/20 17:28 Gen: AAOx 3, no acute distress, comfortable, no signs of respiratory distress CV: RRR no murmurs, gallops, or rubs. CHEST: CTA b/l no wheezing, rales or rhonchi ABD: +BS/ND. no TTP; soft, no rebound, no guarding EXTREMITY: no cyanosis or erythema. 2+ dorsalis pedis, posterior tibial, and radial pulse. No pedal edema; no calf swelling or tenderness SKIN: no rash, warm and dry, no diaphoresis NEURO: normal speech, CN II-XII intact, sensation intact, normal gait, no cerebellar deficits MS: 5/5 strength in all extremities, FROM intact in all extremities except right hand Right hand: There is tenderness palpation over the first MCP base with limited range of motion secondary to pain there is good cap refill sensation intact rest of hand has full range of motion Procedures - Splinting Splint Location: Right: Hand Pre-Proc Neuro Vasc Exam: normal Hand-Made Type: orthoglass Splint Type: Yes: Thumb Spica Post-Proc Neuro Vasc Exam: normal Compa Bandage: 3" Sling: No Complications: No Post splint xray: No Medical Decision Making - Medical Decision Making 08/24/20 17:29 35-year-old female with likely UCL sprain versus tear Vital signs stable except mild tachycardia possibly secondary to pain Patient placed in thumb spica without complication PMS intact before and after Patient follow with hand surgeon and take ibuprofen at home for pain Pt appears well and is safe and stable for discharge with strict return precautions including signs and symptoms requring immediate return to the ED Supportive care instructions explained and given to pt. Reasons to return emergently to ER explained and given. Importance of follow up with PMD and other specialists as indicated stressed to pt. Pt verbalized understanding of instructions. Pt to follow up with PMD in 2 days. Discharge - Discharge Information Problems reviewed: Yes Clinical Impression/Diagnosis: Finger injury Qualifiers: Encounter type: initial encounter Laterality: right Qualified Code(s): S69.91XA - Unspecified injury of right wrist, hand and finger(s), initial encounter Condition: Stable Disposition: HOME - Follow up/Referral Referrals: Chriss Londono MD [Primary Care Provider] - Roger Moncada MD [Staff Physician] - - Patient Discharge Instructions Patient Printed Discharge Instructions: DI for Ulnar Collateral Ligament Sprain of Thumb Additional Instructions: Please follow-up with a hand surgeon Do not get the splint wet Take ibuprofen for pain relief - Post Discharge Activity Work/Back to School Note: Back to Work
== END 2020-08-24 17:29 | disposition home or self-care (01) ==
LOC: JER 16:13 → JERFT 16:13
PROC: 2W3GX1Z Immobilization of Right Thumb using Splint (ICD-10-PCS; principal; 2020-08-24)
DX: S69.91XA Unspecified injury of right wrist, hand and finger(s), initial encounter (principal)
CPT/HCPCS: 73140-TC-RT-FY; 99284-25

== ENCOUNTER 2021-10-12 17:24 | Emergency (ER) | payer OTHER ==
[2021-10-12 17:50] VITALS: BP 123/82; PULSE 85; TEMP 98.1; BMI 34.2
[2021-10-12 20:47] LABS: HIV INTERPRETATION NEGATIVE (NEGATIVE)
== END 2021-10-12 18:55 | disposition home or self-care (01) ==
LOC: FER 17:24
PROC: 3E023GC Introduction of Other Therapeutic Substance into Muscle, Percutaneous Approach (ICD-10-PCS; principal; 2021-10-12)
DX: R10.2 Pelvic and perineal pain (principal)
CPT/HCPCS: 36415; 81003; 84703; 87086; 87389; 87491; 87591; 99284-25

== ENCOUNTER 2022-04-29 13:44 | Emergency (ER) | payer OTHER ==
[2022-04-29 13:56] VITALS: BP 110/76; PULSE 96; TEMP 98.2; BMI 34.0
[2022-04-29] MEDS ORDERED: LIDOCAINE 5% TOPICAL PATCH TP ONE (14:32)
[2022-04-29] MEDS ORDERED: ACETAMINOPHEN 1000 MG/100 ML BAG IVPB ONE (14:46)
[2022-04-29] MEDS ORDERED: ACETAMINOPHEN INJECTION 100 ML IVPB ONE (15:35)
[2022-04-29] MEDS ORDERED: LIDOCAINE 5% TOPICAL PATCH ONE (15:38)
[2022-04-29 16:15] LABS: HEMATOCRIT 35.5 % (32.4-45.2); HEMOGLOBIN 11.7 GM/dL (10.7-15.3); LYMPH % 44.2 % (8-40); MCH 27.3 pg (25.7-33.7); MCHC 32.9 g/dl (32.0-36.0); MEAN CELL VOLUME 82.9 fl (80-96); MEAN PLT VOLUME 6.6 fl (7.5-11.1); MONO % 8.7 % (3.8-10.2); NEUT % 44.1 % (42.8-82.8); PLATELET COUNT 281 10^3/uL (134-434); RBC 4.28 M/mm3 (3.60-5.2); RDW 15.5 % (11.6-15.6); WHITE BLOOD COUNT 5.6 K/mm3 (4.0-10.0)
[2022-04-29 16:34] LABS: CHLORIDE 107 mmol/L (98-107); SODIUM 139 mmol/L (136-145)
[2022-04-29 16:37] LABS: CALCIUM 8.6 mg/dL (8.5-10.1)
[2022-04-29 16:38] LABS: ALBUMIN 3.7 g/dl (3.4-5.0); ANION GAP 4 MMOL/L (8-16); BLOOD UREA NITROGEN 6.9 mg/dL (7-18); CO2 28 mmol/L (21-32); GLUCOSE,RANDOM 79 mg/dL (74-106)
[2022-04-29 16:41] LABS: CREATININE 0.6 mg/dL (0.55-1.3); PHOSPHOROUS 3.3 mg/dL (2.5-4.9); SGOT/AST 30 U/L (15-37); SGPT/ALT 24 U/L (13-61)
[2022-04-29 16:42] LABS: TOT PROT 7.4 g/dl (6.4-8.2)
[2022-04-29 16:43] LABS: BILIRUBIN,TOTAL 0.5 mg/dL (0.2-1)
[2022-04-29 16:44] LABS: ALK PHOS 70 U/L (45-117)
[2022-04-29] MEDS ORDERED: LIDOCAINE PATCH REMOVAL MC ONE (22:00)
== END 2022-04-29 17:48 | disposition home or self-care (01) ==
LOC: JER 13:44
DX: M54.50 Low back pain, unspecified (principal); M25.512 Pain in left shoulder; R10.12 Left upper quadrant pain; V43.62XA Car passenger injured in collision with other type car in traffic accident, initial encounter
CPT/HCPCS: 36415; 71046-TC-FY; 72170-TC-FY; 80053; 82550; 82553; 83735; 84100; 84703; 85025; 99285-25

== ENCOUNTER 2022-09-07 16:37 | Emergency (ER) | payer OTHER ==
[2022-09-07 16:41] VITALS: BP 114/68; PULSE 81; RESP 18; BMI 31.1
[2022-09-07] MEDS ORDERED: ACETAMINOPHEN 500 MG TABLET (FP) PO ONE (18:28)
[2022-09-07] MEDS ORDERED: ACETAMINOPHEN 325 MG TABLET (FP) ONE (18:41)
[2022-09-07] MEDS ORDERED: KETOROLAC TROMETHAMINE 30 MG/1 ML VIAL IM ONE (19:30)
[2022-09-07] MEDS ORDERED: KETOROLAC TROMETHAMINE 30 MG/1 ML VIAL ONE (19:35)
== END 2022-09-07 19:50 | disposition home or self-care (01) ==
LOC: JERFT 16:37
PROC: 3E0233Z Introduction of Anti-inflammatory into Muscle, Percutaneous Approach (ICD-10-PCS; principal; 2022-09-07)
DX: M25.512 Pain in left shoulder (principal)
CPT/HCPCS: 73000-TC-LT-FY; 73030-TC-LT-FY; 73060-TC-LT-FY; 99284-25

== ENCOUNTER 2022-10-04 21:24 | Emergency (ER) | payer OTHER ==
[2022-10-04] MEDS ORDERED: levETIRAcetam 500 MG TABLET (FP) PO ONE ×2 (22:07→22:47)
[2022-10-04] MEDS ORDERED: ACETAMINOPHEN 500 MG TABLET (FP) PO ONE (22:08)
[2022-10-04 22:16] VITALS: BP 129/76; PULSE 76; RESP 18; BMI 30.2
[2022-10-04] MEDS ORDERED: ACETAMINOPHEN 325 MG TABLET (FP) ONE (22:48)
== END 2022-10-05 00:47 | disposition home or self-care (01) ==
LOC: JER 21:24
DX: R56.9 Unspecified convulsions (principal); U07.1 COVID-19
CPT/HCPCS: 0241U-QW; 82962; 99283-25

== ENCOUNTER 2023-02-17 19:18 | Emergency (ER) | payer OTHER ==
[2023-02-17 19:35] VITALS: RESP 18; BMI 30.2
[2023-02-17] MEDS ORDERED: levETIRAcetam 500 MG/5 ML INJECTION VIAL IVPB ONE ×2 (19:50→20:10)
[2023-02-17] MEDS ORDERED: ACETAMINOPHEN 325 MG TABLET (FP) PO ONE (20:20)
[2023-02-17] MEDS ORDERED: ACETAMINOPHEN 325 MG TABLET (FP) ONE (20:20)
[2023-02-17 20:39] LABS: BASO % 0.9 % (0-2.0); EOS % 0.6 % (0-4.5); HEMATOCRIT 35.5 % (32.4-45.2); HEMOGLOBIN 11.8 GM/dL (10.7-15.3); LYMPH % 27.8 % (8-40); MCH 28.2 pg (25.7-33.7); MCHC 33.4 g/dl (32.0-36.0); MEAN CELL VOLUME 84.4 fl (80-96); MEAN PLT VOLUME 6.2 fl (7.5-11.1); MONO % 7.2 % (3.8-10.2); NEUT % 63.5 % (42.8-82.8); PLATELET COUNT 307 10^3/uL (134-434); WHITE BLOOD COUNT 5.7 K/mm3 (4.0-10.0)
[2023-02-17 20:55] LABS: CALCIUM 8.9 mg/dL (8.5-10.1)
[2023-02-17 20:56] LABS: ALBUMIN 3.5 g/dl (3.4-5.0); MAGNESIUM 1.9 mg/dL (1.8-2.4)
[2023-02-17 20:58] LABS: CREATININE 0.6 mg/dL (0.55-1.3); PHOSPHOROUS 1.8 mg/dL (2.5-4.9)
[2023-02-17 21:00] LABS: BILIRUBIN,TOTAL 0.2 mg/dL (0.2-1)
[2023-02-17 23:15] VITALS: BP 109/72; PULSE 71; TEMP 98.2
== END 2023-02-17 23:16 | disposition home or self-care (01) ==
LOC: JER 19:18
PROC: 3E033GC Introduction of Other Therapeutic Substance into Peripheral Vein, Percutaneous Approach (ICD-10-PCS; principal; 2023-02-17)
DX: G40.909 Epilepsy, unspecified, not intractable, without status epilepticus (principal); Z20.822 Contact with and (suspected) exposure to COVID-19
CPT/HCPCS: 0241U-QW; 36415; 80053; 80177; 83735; 84100; 85025; 96374; 99284-25; G0480

== ENCOUNTER 2023-09-27 18:00 | Emergency (ER) | payer OTHER ==
[2023-09-27 18:20] VITALS: BP 115/80; PULSE 90; RESP 18; TEMP 98.4; BMI 28.3
[2023-09-27] MEDS ORDERED: SODIUM CHLORIDE 0.9% 1000 ML INFUS.BAG IV ONE (18:37)
[2023-09-27 19:19] LABS: HEMATOCRIT 39.7 % (32.4-45.2); MCH 29.5 pg (25.7-33.7); MCHC 32.6 g/dl (32.0-36.0); MEAN CELL VOLUME 90.2 fl (80-96); MEAN PLT VOLUME 6.5 fl (7.5-11.1); PLATELET COUNT 255.7 10^3/uL (134-434); RDW 13.7 % (11.6-15.6); WHITE BLOOD COUNT 6.3 10^3/uL (4.0-10.8)
[2023-09-27 19:33] LABS: ALBUMIN 4.7 g/dl (3.4-5.0); BILIRUBIN,TOTAL 0.5 mg/dl (0.2-1); CALCIUM 9.4 mg/dl (8.5-10.1); CREATININE 0.9 mg/dl (0.6-1.3); TOT PROT 7.1 g/dl (6.4-8.2)
[2023-09-27 19:34] LABS: PLATELET ESTIMATE ADEQUATE
[2023-09-27 19:35] LABS: HCG,QUALITATIVE URINE Positive
[2023-09-27 19:54] LABS: EPITHELIAL CELLS FEW /hpf
== END 2023-09-27 21:25 | disposition home or self-care (01) ==
LOC: FER 18:00
DX: O26.891 Other specified pregnancy related conditions, first trimester (principal); R10.2 Pelvic and perineal pain; O23.591 Infection of other part of genital tract in pregnancy, first trimester; B37.31 Acute candidiasis of vulva and vagina; Z3A.13 13 weeks gestation of pregnancy
CPT/HCPCS: 36415; 76801-TC; 80053; 81003; 81015; 84702; 84703; 85027; 86850; 86900; 86901; 87086; 87186; 99284-25